=== PATIENT | female | born 1990 | race Two or more races ===

== ENCOUNTER 2018-06-20 16:10 | Observation (INO) | payer MEDICAID | END 2018-06-20 17:40 | disposition home or self-care (01) | DRG 566 | LOC: LDRP 16:10 | PROVIDERS: ADMIT Specialist; ATTEND Specialist | DX: O26.892 Other specified pregnancy related conditions, second trimester (principal); R10.9 Unspecified abdominal pain; Z3A.25 25 weeks gestation of pregnancy; W19.XXXA Unspecified fall, initial encounter; Y93.89 Activity, other specified; Y92.89 Other specified places as the place of occurrence of the external cause; Y99.8 Other external cause status | CPT/HCPCS: 59025; 76815; 81002; G0378 ==

== ENCOUNTER 2018-08-05 19:36 | Observation (INO) | payer MEDICAID ==
[~2018-08-05] VITALS: Ht 162.6 cm; Wt 84.8 kg
[2018-08-05] MEDS ORDERED: PREN-129 OR (20:04)
== END 2018-08-05 21:25 | disposition home or self-care (01) | DRG 566 ==
LOC: LDRP 19:36
PROVIDERS: ADMIT Specialist; ATTEND Specialist
DX: O26.853 Spotting complicating pregnancy, third trimester (principal); O26.893 Other specified pregnancy related conditions, third trimester; R10.9 Unspecified abdominal pain; Z3A.32 32 weeks gestation of pregnancy
CPT/HCPCS: 59025; 76815; 76817; 81002; G0378

== ENCOUNTER 2022-03-03 08:08 | Observation (INO) | payer MEDICAID ==
[~2022-03-03 08:08] MED LIST: PREN-129 OR
== END 2022-03-03 10:07 | disposition home or self-care (01) ==
LOC: LDRP 08:08
PROVIDERS: ADMIT Obstetrics & Gynecology; ATTEND Obstetrics & Gynecology
DX: O26.893 Other specified pregnancy related conditions, third trimester (principal); N89.8 Other specified noninflammatory disorders of vagina; Z3A.40 40 weeks gestation of pregnancy
CPT/HCPCS: 59025; 76818; 81002; 94760; G0378

== ENCOUNTER 2022-03-05 07:50 | Observation (INO) | payer MEDICAID | END 2022-03-05 12:17 | disposition home or self-care (01) | LOC: LDRP 10:00 | PROVIDERS: ADMIT Obstetrics & Gynecology; ATTEND Obstetrics & Gynecology | DX: O48.0 Post-term pregnancy (principal); O26.893 Other specified pregnancy related conditions, third trimester; N89.8 Other specified noninflammatory disorders of vagina; Z3A.40 40 weeks gestation of pregnancy | CPT/HCPCS: 59025; 76818; 81002; G0378 ==

== ENCOUNTER 2022-03-07 09:10 | Observation (INO) | payer MEDICAID | END 2022-03-07 11:45 | disposition home or self-care (01) | LOC: LDRP 09:10 | PROVIDERS: ADMIT Obstetrics & Gynecology; ATTEND Obstetrics & Gynecology | DX: O42.92 Full-term premature rupture of membranes, unspecified as to length of time between rupture and onset of labor (principal); Z20.822 Contact with and (suspected) exposure to COVID-19; O62.9 Abnormality of forces of labor, unspecified; Z3A.40 40 weeks gestation of pregnancy | CPT/HCPCS: 36415; 59025; 76815; 81002; 84112; 87426; 94760; G0378; Q0114 ==

== ENCOUNTER 2022-03-07 21:23 | Inpatient (IN) | payer MEDICAID ==
[~2022-03-07] VITALS: Ht 162.6 cm; Wt 96.2 kg
[2022-03-07] MEDS ORDERED: BUTORPHANOL TARTRATE 2 MG/1 ML VIAL IV PRN ×2 (22:15)
[2022-03-07] MEDS ORDERED: DERMOPLAST 60ML BOTTLE TOP PRN (22:15)
[2022-03-07] MEDS ORDERED: PHISODERM TOP SOLN 240ML BTL TOP PRN (22:15)
[2022-03-07] MEDS ORDERED: PROMETHAZINE HCL 25 MG/ML 1ML IV PRN (22:15)
[2022-03-07] MEDS ORDERED: WITCH HAZEL-GLYCERIN PAD TOP PRN (22:15)
[2022-03-07] MEDS ORDERED: SODIUM CHLORIDE 0.9% 1,000 ML IV SCH (22:15)
[2022-03-07] MEDS ORDERED: LIDOCAINE 2%HCL (LOCAL ANESTH.) INJ 10ml MDV IJ PRN (22:15)
[2022-03-07 23:01] LABS: Basophils # (auto) 0 10 ^3/uL (0-0.2); Basophils % (auto) 0.3 % (0.0-2.0); Eosinophils # (auto) 0.1 10 ^3/uL (0-0.8); Eosinophils % (auto) 1.1 % (0.0-7.0); Hematocrit 32.6 % (36.0-46.0); Hemoglobin 11.2 g/dL (12.2-16.2); Lymphocytes # (auto) 1.4 10 ^3/uL (0.4-5.4); Lymphocytes % (auto) 14.8 % (10.0-50.0); Mean Corpuscular Hemoglobin 29.6 pg (28.0-32.0); Mean Corpuscular Hgb Conc. 34.2 g/dL (32.0-36.0); Mean Corpuscular Volume 86.4 fL (80.0-100.0); Monocytes # (auto) 0.9 10 ^3/uL (0-1.3); Neutrophils # (auto) 7.2 10 ^3/uL (1.6-8.6); Neutrophils % (auto) 74.8 % (37.0-80.0); Red Blood Cells 3.77 10^6/uL (4.0-5.20); Red Cell Distribution Width 14.7 % (11.8-14.3); White Blood Cell 9.6 10^3/uL (4.4-10.8)
[2022-03-07 23:11] LABS: Urine Bacteria FEW /hpf (None Seen); Urine Blood 2+ /uL (Negative); Urine Mucus FEW (None Seen); Urine Specific Gravity 1.018 (1.001-1.035); Urine WBC 93 /hpf (0 - 5)
[2022-03-07 23:16] LABS: INR 0.89 (0.9-1.15); Partial Thromboplastin Time 25.7 sec (23.6-33.0)
[2022-03-07 23:17] LABS: Albumin 2.6 g/dL (3.4-5.0); Calcium 8.6 mg/dL (8.5-10.1); Potassium 3.9 mmol/L (3.5-5.1)
[2022-03-07 23:18] LABS: Alcohol, Urine < 3.0 mg/dL (0-10); Amphetamine Screen, Urine NEGATIVE (NEGATIVE); Barbiturate Scree,Urine NEGATIVE (NEGATIVE); Benzodiazephine Screen, Urine NEGATIVE (NEGATIVE); Cannabinoid Screen, Urine NEGATIVE (NEGATIVE); Cocaine Screen, Urine NEGATIVE (NEGATIVE); Opiate Scree,Urine NEGATIVE (NEGATIVE); Phencyclidine Screen, Urine NEGATIVE (NEGATIVE)
[2022-03-07 23:19] LABS: BUN/Creatinine Ratio 14.3
[2022-03-07 23:22] LABS: Bilirubin, Total 0.3 mg/dL (0.2-1.0); Total Protein 6.4 g/dL (6.4-8.2)
[2022-03-07] MEDS ORDERED: ceFAZolin 1GM/50ML 50 ML IV SCH (23:30)
[2022-03-07] MEDS ORDERED: LIDOCAINE HCL 2 %PF INJ 10ML AMP IJ ONE ×2 (23:41→23:45)
[2022-03-07] MEDS ORDERED: ePHEDrine SULFATE 50 MG/ML AMP ONE (23:41)
[2022-03-07] MEDS ORDERED: ROPIVACAINE HCL 200 ML ONE (23:42)
[2022-03-07] MEDS ORDERED: LACTATED RINGER'S 1,000 ML IV ONE (23:45)
[2022-03-07] MEDS ORDERED: NALOXONE HCL 0.4 MG/ML VIAL IV ONE (23:45)
[2022-03-07] MEDS ORDERED: ePHEDrine SULFATE 50 MG/ML AMP IV ONE (23:45)
[2022-03-07] MEDS ORDERED: ROPIVACAINE HCL 200 ML EPI SCH (23:45)
[2022-03-08] MEDS ORDERED: LACT. RINGERS/OXYTOCIN 20UNITS 500 ML IV ONE ×2 (00:45→01:15)
[2022-03-08] MEDS: ROPIVACAINE HCL 200 ML EPI SCH ×2 (06:35→09:25)
[2022-03-08] MEDS ORDERED: LACT. RINGERS/OXYTOCIN 20UNITS 1,000 ML IV SCH (07:15)
[2022-03-08] MEDS ORDERED: TERBUTALINE SULFATE 1 MG/ML 1ML VIAL SC PRN (07:15)
[2022-03-08] MEDS ORDERED: ePHEDrine SULFATE 50 MG/ML AMP IV ONE (07:45)
[2022-03-08] MEDS ORDERED: fentaNYL CITRATE 100 MCG/2 ML VL IV ONE ×2 (07:45→12:30)
[2022-03-08] MEDS ORDERED: LIDOCAINE HCL 2 %PF INJ 10ML AMP IJ ONE (07:45)
[2022-03-08] MEDS ORDERED: ROPIVACAINE HCL 200 ML EPI SCH (07:45)
[2022-03-08] MEDS ORDERED: NALOXONE HCL 0.4 MG/ML VIAL IV ONE (07:45)
[2022-03-08] MEDS ORDERED: fentaNYL CITRATE 100 MCG/2 ML VL ONE (11:24)
[2022-03-08] MEDS ORDERED: ACETAMINOPHEN 325 MG TAB PO PRN (14:30)
[2022-03-08] MEDS ORDERED: ONDANSETRON ODT 4 MG TAB PO PRN (14:30)
[2022-03-08] MEDS: IBUPROFEN 800 MG TAB PO SCH (18:20)
[2022-03-08 18:30] VITALS: BP 112/62
[2022-03-08] MEDS ORDERED: DOCUSATE SOD 100 MG CAP PO SCH (22:00)
[2022-03-08 23:10] VITALS: BP 110/67
[2022-03-09] MEDS: IBUPROFEN 800 MG TAB PO SCH ×4 (01:03→17:57)
[2022-03-09 03:10] VITALS: BP 113/72
[2022-03-09 05:06] LABS: RPR Non Reactive (Non Reactive)
[2022-03-09] MEDS ORDERED: DOCU100C10 PO (06:14)
[2022-03-09] MEDS ORDERED: PREN-129 OR (06:14)
[2022-03-09] MEDS ORDERED: IBUP800T26 PO (06:14)
[2022-03-09 07:30] VITALS: BP 99/68
[2022-03-09 11:00] VITALS: BP 110/70
[2022-03-09] MEDS ORDERED: TETANUS-DIPTH-ACEL PERTUSSIS 0.5ML SYR Tdap IM ONE (13:45)
[2022-03-09 15:21] VITALS: BP 107/64
[2022-03-09 19:00] VITALS: BP 107/64
== END 2022-03-09 20:36 | disposition home or self-care (01) | DRG 560 ==
LOC: OBSVTOIN 21:23 → NUR 21:23 → LDRP 23:19
PROVIDERS: ADMIT Obstetrics & Gynecology; ATTEND Obstetrics & Gynecology
PROC: 10E0XZZ Delivery of Products of Conception, External Approach (ICD-10-PCS; principal; 2022-03-08)
PROC: 00HU33Z Insertion of Infusion Device into Spinal Canal, Percutaneous Approach (ICD-10-PCS; 2022-03-08)
PROC: 3E0R3BZ Introduction of Anesthetic Agent into Spinal Canal, Percutaneous Approach (ICD-10-PCS; 2022-03-08)
DX: O77.0 Labor and delivery complicated by meconium in amniotic fluid (principal); Z37.0 Single live birth; Z20.822 Contact with and (suspected) exposure to COVID-19; Z3A.40 40 weeks gestation of pregnancy
CPT/HCPCS: 36415; 59025; 59409; 62282; 80053; 80307; 81001; 81002; 85025; 85610; 85730; 86592; 86850; 86900; 86901; 90715; 94760; 96360; 96361; 96365; 96366; 96372; 96374; G0378; J0690; J2001